=== PATIENT | male | born 1980 | race Caucasian/White ===

== ENCOUNTER 2018-10-17 19:21 | Emergency (ER) | payer BC ==
[~2018-10-17] VITALS: Ht 177.8 cm; Wt 95.0 kg
[2018-10-17] MEDS ORDERED: MUSCLE RELAXANT PO (19:39)
[2018-10-17] MEDS ORDERED: IBUP-2070 PO (19:39)
[2018-10-17] MEDS ORDERED: DIAZEPAM 5 MG TABLET PO ONE (20:30)
[2018-10-17] MEDS ORDERED: KETOROLAC TROMETHAMINE 30 MG/ML VIAL IM ONE (20:30)
[2018-10-17 21:30] VITALS: BP 118/68
== END 2018-10-17 21:43 | disposition home or self-care (01) ==
LOC: EMS 19:22
DX: R51 Headache (principal); R11.0 Nausea; Z88.8 Allergy status to other drugs, medicaments and biological substances
CPT/HCPCS: 70450; 96372; 99284; J1885